=== PATIENT | female | born 1985 | race Caucasian/White ===

== ENCOUNTER → 2018-11-15 | Outpatient (REF) | payer MEDICAID, OTHER ==
[2018-11-15 12:17] LABS: BASO % 0.2 % (0.0-1.0); EOS % 0.3 % (0.0-3.0); HEMATOCRIT 40.1 % (36.0-47.0); HEMOGLOBIN 12.9 g/dl (12.0-15.5); LYMPH # 1.1 10^3/uL (1.5-4.5); LYMPH % 11.8 % (24.0-44.0); MEAN CORPUSCULAR HEMOGLOBIN 29.8 pg (27.0-33.0); MEAN CORPUSCULAR HGB CONC 32.2 g/dl (32.0-36.5); MEAN CORPUSCULAR VOLUME 92.6 fl (80.0-96.0); MONO # 0.4 10^3/uL (0.0-0.8); MONO % 4.5 % (0.0-5.0); NEUTROPHILS # 7.7 10^3/uL (1.8-7.7); NEUTROPHILS % 82.8 % (36.0-66.0); PLATELET COUNT, AUTOMATED 187 10^3/uL (150-450); RED BLOOD COUNT 4.33 10^6/uL (4.00-5.40); WHITE BLOOD COUNT 9.3 10^3/uL (4.0-10.0)
[2018-11-15 12:37] LABS: ALBUMIN 4.1 GM/DL (3.2-5.2); ALT/SGPT 28 U/L (12-78); BILIRUBIN,TOTAL 0.7 MG/DL (0.2-1.0); BLOOD UREA NITROGEN 18 MG/DL (7-18); CALCIUM LEVEL 8.9 MG/DL (8.5-10.1); CARBON DIOXIDE LEVEL 28 MEQ/L (21-32); CHLORIDE LEVEL 107 MEQ/L (98-107); CREATININE FOR GFR 0.86 MG/DL (0.55-1.30); FREE T4 0.78 NG/DL (0.76-1.46); GLOMERULAR FILTRATION RATE > 60.0 (>60); GLUCOSE, FASTING 85 MG/DL (70-100); POTASSIUM SERUM 4.2 MEQ/L (3.5-5.1); SODIUM LEVEL 141 MEQ/L (136-145); THYROID STIMULATING HORMONE 0.662 uIU/ML (0.358-3.740); TOTAL PROTEIN 7.2 GM/DL (6.4-8.2)
== END ==
LOC: M SFHCPLAZ 08:37
PROVIDERS: ATTEND Physician Assistant
DX: R52 Pain, unspecified (principal); J02.9 Acute pharyngitis, unspecified; F32.9 Major depressive disorder, single episode, unspecified

== ENCOUNTER → 2018-12-19 | Outpatient (REF) | payer MEDICAID, OTHER | LOC: M SFHCPLAZ 10:05 | PROVIDERS: ATTEND Physician Assistant | DX: Z13.220 Encounter for screening for lipoid disorders (principal); Z53.8 Procedure and treatment not carried out for other reasons ==

== ENCOUNTER → 2018-12-27 | Outpatient (REF) | payer MEDICAID ==
[2018-12-27 10:40] LABS: CHOLESTEROL RISK RATIO 3.027 (<5)
== END ==
LOC: M SFHCPLAZ 08:40
PROVIDERS: ATTEND Physician Assistant
DX: Z13.220 Encounter for screening for lipoid disorders (principal)

== ENCOUNTER → 2018-12-27 | Outpatient (CLI) | payer OTHER ==
--- NOTE | 2018-12-27 09:53 | REP ---
Clinical: Lower back pain . Technique: AP, lateral, bilateral oblique, and coned-down views. Findings: Alignment and lordosis is maintained. The vertebral bodies including transverse process and spinous processes are intact and normal. There is no evidence for acute fracture / compression injury or subluxation. No evidence for spondylolysis or spondylolisthesis. No significant degenerative change is noted. Impression: Normal lumbosacral spine radiograph series. If the patient remains symptomatic consider MRI for further investigation. Electronically Signed by Mihir Connor MD 12/27/2018 09:45 A
--- NOTE | 2018-12-27 09:54 | REP ---
Clinical: Mid thoracic back pain. Technique: AP, lateral, and swimmers views. Findings: Alignment and kyphosis is maintained. Vertebral bodies intact. No acute fracture / compression injury or subluxation. No degenerative changes. Paravertebral soft tissues are normal. Impression: Normal thoracic spine series. Electronically Signed by Mihir Connor MD 12/27/2018 09:46 A
== END ==
LOC: M SMT 09:00
PROVIDERS: ATTEND Physician Assistant
DX: M54.5 Low back pain (principal); M54.6 Pain in thoracic spine

== ENCOUNTER → 2019-01-31 | Outpatient (CLI) | payer OTHER ==
--- NOTE | 2019-01-31 10:05 | REP ---
MRI lumbar spine without contrast: History: Low back pain. Comparison radiographs are from December 27, 2018. Technique: Sagittal and axial T1 and T2-weighted scans are acquired in the usual fashion with and without fat saturation. Sequences include spin echo, turbo spin-echo, and STIR imaging sequences. MRI findings: Lumbar vertebral body heights are preserved. Normal alignment is seen. Pedicles and posterior elements are intact. There is no evidence of spondylolysis or spondylolisthesis. No extra vertebral abnormality is observed. Conus medullaris is normal in position and appearance at T12. There is mild degenerative disc narrowing and decreased signal intensity at the L2-3 intervertebral disc level. No significant disc protrusion is noted on axial or sagittal images however. No central canal stenosis or neural foraminal narrowing is seen. The L1-2 disc level is unremarkable. At L3-4, there is minimal narrowing but no disc protrusion, central canal stenosis, or neural foraminal narrowing. At L4-5, there is no significant finding. At L5-S1, there is minimal facet hypertrophy. No other abnormality. Impression: Mild degenerative narrowing L2-3 and L3-4 disc and minimal facet hypertrophy L5-S1. Otherwise negative. Electronically Signed by Tejas Douglass MD 01/31/2019 11:00 A
== END ==
LOC: M RAD 08:46
PROVIDERS: ATTEND Physician Assistant
DX: M54.5 Low back pain (principal); M51.36 Other intervertebral disc degeneration, lumbar region

== ENCOUNTER 2019-02-19 08:15 | Outpatient (RCR) | payer OTHER | END 2019-02-25 | LOC: M PT 08:15 | PROVIDERS: ATTEND Physician Assistant | DX: Z51.89 Encounter for other specified aftercare (principal); M54.5 Low back pain ==

== ENCOUNTER 2019-03-05 08:30 | Outpatient (RCR) | payer OTHER | END 2019-03-27 | LOC: M PT 08:30 | PROVIDERS: ATTEND Physician Assistant | DX: M54.5 Low back pain (principal) ==

== ENCOUNTER → 2019-05-02 | Outpatient (REF) | payer OTHER | LOC: M SFHCPLAZ 11:09 | PROVIDERS: ATTEND Nurse Practitioner Family | DX: Z12.4 Encounter for screening for malignant neoplasm of cervix (principal) ==